=== PATIENT | male | born 1975 | race Caucasian/White ===

== ENCOUNTER 2023-10-23 15:04 | Outpatient (OUT) | payer SELFPAY | END 2023-10-23 15:05 | disposition home or self-care (01) | LOC: PST 15:05 | PROVIDERS: PCP Family Medicine; Visit Provider Surgery | DX: Z01.818 Encounter for other preprocedural examination (principal); Z12.11 Encounter for screening for malignant neoplasm of colon ==

== ENCOUNTER 2023-10-31 07:37 | Day surgery (SDC) | payer OTHER, SELFPAY ==
--- NOTE | 2023-10-31 | OP_ITS ---
OPERATION DATE: 10/31/2023 PREOPERATIVE DIAGNOSIS: Colorectal screening. POSTOPERATIVE DIAGNOSIS: Sigmoid diverticulosis. PROCEDURE: Colonoscopy to cecum. SURGEON: Kenji Lima M.D. ANESTHESIA: Monitored anesthesia care. ESTIMATED BLOOD LOSS: Zero. INDICATIONS AND CONSENT: Patient is a 47-year-old male presents for colorectal screening. Indications, risks, benefits, alternatives of proceeding with colonoscopy were explained extensively to the patient, including the risks of bleeding, colon perforation or anesthetic complications. All of his questions were answered. Informed consent was obtained. PROCEDURE: Patient brought to the operating room, placed in the left lateral decubitus position. Monitored anesthesia care was provided. Rectal exam was performed which showed no masses or blood. The scope was inserted into the anal canal. Under direct visualization was advanced. It was advanced to the cecum where cecal markings were clearly identified. Upon withdrawal of the scope, mucosal surfaces were carefully examined. There were no mass lesions or polyps. No inflammatory changes or ulcerations. There was moderate sigmoid diverticulosis without inflammatory change or scarring. The scope was retroflexed in the anal canal. There was no significant hemorrhoidal disease. Scope was then withdrawn. Patient tolerated procedure well, was sent to recovery room in good condition.f/u colonoscopy should be in 10 years. CC: Dr. Shahid MCALLISTER
--- OUTSIDE RECORDS SUMMARY | 2023-10-31 07:40 | XMS_ITS | CCD ---
Author Name Unknown Address [address] [place] [address] Organization [facility] Care Team Providers Care Gun Numberer Name Role Phone BRAULIO WADSWORTH Attending Unavailable BRAULIO WADSWORTH Consulting Unavailable BRAULIO WADSWORTH Admitting Unavailable FLAKITA, DR MARIA DOLORES Huber Primary Care Unavailable TOANECK, DR SCOUT Gibson Consulting Unavailhaydee e FLAKITA, DR MARIA DOLORES Huber Primary Care Unavailable TOANECK, DR SCOUT Gibson Admitting Unavailabl e REINRADHA, DR SCOUT Gibson Attending Unavailhaydee e JANNETH, MARTINA WALSH Consulting Unavailable Iraida Hsu Consulting Unavailable BRAULIO WADSWORTH Attending Unavailable BRAULIO WADSWORTH Consulting Unavailable BRAULIO WADSWORTH Admitting Unavailable BRAULIO WADSWORTH Attending Unavailable REQUEST, DR BOWEN LISTED Consulting Unavaila BRAULIO Mendoza Admitting Unavailable FLAKITA, DR MARIA DOLORES Huber Primary Care Unavailable BRAULIO WADSWORTH Attending Unavailable BRAULIO WADSWORTH Consulting Unavailable BRAULIO WADSWORTH Unavailable FLAKITA, DR MARIA DOLORES Huber Primary Care Unavailable Braulio Wadsworth. Primary Care Physician Kenji POWELL Attending Unavailable Braulio Wadsworth Referring Unavailable Braulio Wadsworth Attending Unavailable Braulio Wadsworth Attending Unavailable Braulio Wadsworth Admitting Unavailable Allergies Allergy Classification Reported Allergen(s) Allergy Type Date of Onset Reaction(s) Facility (2 sources) Seasonal allergy; Translations: [Seasonal] Allergy to substance Unknown (qualifier value) [facility] (1 source) No Known Medication Allergies; Translations: [No Known Medication Allergies] Propensity to adverse reactions (disorder) [facility] Repository NEGATED: Highlighted row has been ruled out! (1 source) Drug allergy [facility] [place] Problems Active Problems Problem Classification Problem Date Documented Da te Episodic/Chronic Conditions associated with dizziness or vertigo (1 source) Labyrinthitis 09-04-2023 Episodic Contraceptive and procreative management (1 source) Contraception status 09-06-2020 Episodic Esophageal disorders (1 source) Gastroesophageal reflux disease 09-04-2023 Chronic Nonspecific chest pain (4 sources) Other chest pain; Translations: [OTHER CHEST PAIN] Onset: 1 Episodic Other aftercare (1 source) Surgical follow-up 09-23-2020 Episodic Other gastrointestinal disorders (1 source) Dysphagia 09-04-2023 Episodic Other upper respiratory disease (1 source) Allergic rhinitis 09-04-2023 Chronic Unclassified (1 source) PERSONAL HISTORY OF COVID-19; Translations: [PERSONAL HISTORY OF COVID-19] Onset: 1 Unclassified (2 sources) CONTACT W/AND (SUSP) EXPOS COVID-19; Translations: [CONTACT W/AND (SUSP) EXPOS COVID-19] Onset: 1 Unclassified (3 sources) Patient encounter status 03-23-2020 Viral infection (1 source) Infectious mononucleosis 09-04-2023 Episodic Comment on above: 1990 Viral infection (2 sources) COVID-19; Translations: [Disease caused by 2019-nCoV] Onset: 1 09-04-2023 Comment on above: january 2021 and Oct 16 Past or Other Problems Problem Classification Problem Date Documented Da te Episodic/Chronic Immunizations and screening for infectious disease (8 sources) Encounter for immunization; Translations: [Contact with and (suspected) exposure to other viral communicable diseases] Onset: 09-02-2020 Episodic Unclassified (1 source) CONTACT W/AND (SUSP) EXPOS COVID-19; Translations: [CONTACT W/AND (SUSP) EXPOS COVID-19] Onset: 02-03-2021 Results Test Name Value Interpretation Reference Range Facility Consent for Procedure/Surger yon 10-03-2023 Consent for Procedure/Surgery [id number] .[id number] Normal [facility] Ambulatory Visit Summaryon 1 12-03-2022 Ambulatory Visit Summary SIMONE STEFANIE D :1975 Visit Date:10/02/2023 Ambulatory Visit Instructions Your Care Team Attending Physician - ANDRE MAYO, Kenji Mann Primary Care Physician - Braulio Wadsworth MD Referring Physician - Braulio Wadsworth MD Procedures Performed Vasectomy (09/06/2020), Eye surgery. Discharge Vitals Heart Rate (Peripheral) 72 Respiratory Rate 16 Blood Pressure 128/88 Height 185 cm Height 73 in Weight 97 kg Weight 213.4 lb BMI 28.34 Allergies No Known Medication Allergies Seasonal (Unknown) Problems Ongoing - Any problem that you are currently receiving treatment for. Allergic rhinitis BMI 28.0-28.9,adult Colon cancer screening COVID-19 Dysphagia Encounter for postvasectomy sperm count Encounter for vasectomy Encounter for vasectomy assessment GERD (gastroesophageal reflux disease) Labyrinthitis Mononucleosis Obesity Physical exam Patient Survey You may receive a survey via text or e-mail asking about your office visit. Please share your experience with us by completing your survey. We appreciate your feedback and thank you for choosing us for your care. [facility] Patient Correspondenceon Patient Correspondence [id number] [facility] Ambulatory Visit Summaryon 1 11-13-2022 Ambulatory Visit Summary SIMONESTEFANIE BOND David :1975 Visit Date:09/13/2023 Ambulatory Visit Instructions Your Diagnosis Physical exam GERD (gastroesophageal reflux disease) Allergic rhinitis Colon cancer screening Over weight BMI 28.0-28.9,adult Your Care Team Attending Physician - Braulio Wadsworth MD Primary Care Physician - Braulio Wadsworth MD Procedures Performed Vasectomy (09/06/2020), Eye surgery. Discharge Vitals Temperature (Temporal Artery) 37.1 ?C Heart Rate (Peripheral) 76 Respiratory Rate 16 Blood Pressure 138/88 Height 73 in Height 185 cm Weight 214.28 lb Weight 97.4 kg BMI 28.46 Medications and Immunizations Administered Not Given influenza virus vaccine, inactivated, Patient Refuses Allergies No Known Medication Allergies Seasonal (Unknown) Problems Ongoing - Any problem that you are currently receiving treatment for. Allergic rhinitis Colon cancer screening COVID-19 Dysphagia Encounter for postvasectomy sperm count Encounter for vasectomy Encounter for vasectomy assessment GERD (gastroesophageal reflux disease) Labyrinthitis Mononucleosis Physical exam Patient Survey You may receive a survey via text or e-mail asking about your office visit. Please share your experience with us by completing your survey. We appreciate your feedback and thank you for choosing us for your care. [facility] BMI for Adults What is BMI? Body mass index (BMI) is a number that is calculated from a person's weight and height. BMI can help estimate how much of a person's weight is composed of fat. BMI does not measure body fat directly. Rather, it is an alternative to procedures that directly measure body fat, which can be difficult and expensive. BMI can help identify people who may be at higher risk for certain medical problems. What are BMI measurements used for? BMI is used as a screening tool to identify possible weight problems. It helps determine whether a person is obese, overweight, a healthy weight, or underweight. BMI is useful for: ? Identifying a weight problem that may be related to a medical condition or may increase the risk for medical problems. ? Promoting changes, such as changes in diet and exercise, to help reach a healthy weight. BMI screening can be repeated to see if these changes are working. How is BMI calculated? BMI involves measuring your weight in relation to your height. Both height and weight are measured, and the BMI is calculated from those numbers. This can be done either in [place] or metric measurements. Note that charts and online BMI calculators are available to help you find your BMI quickly and easily without having to do these calculations yourself. To calculate your BMI in [place] measurements: 1. Measure your weight in pounds (lb). 2. Multiply the number of pounds by 703. ? For example, for a person who weighs 180 lb, multiply that number by 703, which equals 126,540. 3. Measure your height in inches. Then multiply that number by itself to get a measurement called inches squared. ? For example, for a person who is 70 inches tall, the inches squared measurement is 70 inches x 70 inches, which equals 4,900 inches squared. 4. Divide the total from step 2 (number of lb x 703) by the total from step 3 (inches squared): 126,540 ? 4,900 = 25.8. This is your BMI. To calculate your BMI in metric measurements: 1. Measure your weight in kilograms (kg). 2. Measure your height in meters (m). Then multiply that number by itself to get a measurement called meters squared. ? For example, for a person who is 1.75 m tall, the meters squared measurement is 1.75 m x 1.75 m, which is equal to 3.1 meters squared. 3. Divide the number of kilograms (your weight) by the meters squared number. In this example: 70 ? 3.1 = 22.6. This is your BMI. What do the results mean? BMI charts are used to identify whether you are underweight, normal weight, overweight, or obese. The following guidelines will be used: ? Underweight: BMI less than 18.5. ? Normal weight: BMI between 18.5 and 24.9. ? Overweight: BMI between 25 and 29.9. ? Obese: BMI of 30 or above. Keep these notes in mind: ? Weight includes both fat and muscle, so someone with a muscular build, such as an athlete, may have a BMI that is higher than 24.9. In cases like these, BMI is not an accurate measure of body fat. ? To determine if excess body fat is the cause of a BMI of 25 or higher, further assessments may need to be done by a health care provider. ? BMI is usually interpreted in the same way for men and women. Where to find more information For more information about BMI, including tools to quickly calculate your BMI, go to these websites: ? Centers for Disease Control and Prevention: www.cdc.gov ? [place] [employer]: www.heart.org ? National He (more content not included)... Normal [facility] Auto Diffon 09-13-2023 Basophils/100 WBC (Bld) 0.5 % Normal 0.0-2.0 [facility] Comment on above: Order Comment: Order Added by Discern Expert. Performed By: #### 2 623735, 5453437, 0829389, 51239062, 4874202, 91544347 #### [facility] [address] [place] [address] Basophils/Leukocytes Auto (Bld) [Pure # fraction] 0.0 E9/L Normal 0.0-0.2 [facility] Comment on above: Order Comment: Order Added by Discern Expert. Performed By: #### 2 169131, 0923216, 1659554, 80948501, 6135174, 76102400 #### [facility] [address] [place] [address]1721 Eosinophils/100 WBC (Bld) 7.0 % Normal 0.0-8.0 [facility] Comment on above: Order Comment: Order Added by Discern Expert. Performed By: #### 2 556529, 7789661, 6144192, 16705091, 2684965, 85784900 #### [facility] [address] [place] [address] Eosinophils/Leukocyte s Auto (Bld) [Pure # fraction] 0.5 E9/L Normal 0.0-0.5 [facility] Comment on above: Order Comment: Order Added by Discern Expert. Performed By: #### 2 455602, 2443617, 2467911, 14275930, 3007329, 22422264 #### [facility] [address] [place] [address] 40016 Lymphocytes/100 WBC (Bld) 43.5 % Normal 14.0-50.0 [facility] Comment on above: Order Comment: Order Added by Discern Expert. Performed By: #### 2 927947, 2743758, 0104012, 37852615, 7885715, 70870910 #### [facility] [address] [place] [address] Lymphocytes/Leukocyte s Auto (Bld) [Pure # fraction] 3.0 E9/L Normal 1.0-4.0 [facility] Comment on above: Order Comment: Order Added by Discern Expert. Performed By: #### 2 742541, 3991357, 8585030, 44263962, 4432440, 12879256 #### [facility] [address] [place] [address]184 Monocytes/100 WBC (Bld) 7.0 % Normal 4.0-14.0 [facility] Comment on above: Order Comment: Order Added by Discern Expert. Performed By: #### 2 657600, 2726967, 2054787, 52578758, 7341980, 60675313 #### [facility] [address] [place] [address] Monocytes/Leukocytes Auto (Bld) [Pure # fraction] 0.5 E9/L Normal 0.2-1.0 [facility] Comment on above: Order Comment: Order Added by Discern Expert. Performed By: #### 2 434356, 0597394, 4224073, 60128424, 4635960, 81316872 #### [facility] [address] [place] [address] Neutrophils/100 WBC (Bld) 42.0 % Normal 36.0-75.0 [facility] Comment on above: Order Comment: Order Added by Discern Expert. Performed By: #### 2 743214, 8816719, 8362672, 01490084, 2554824, 79345491 #### [facility] [address] [place] [address] 46955 Neutrophils/Leukocyte s Auto (Bld) [Pure # fraction] 2.9 E9/L Normal 2.0-7.5 [facility] Comment on above: Order Comment: Order Added by Discern Expert. Performed By: #### 2 828995, 6072530, 5312435, 71450162, 5051747, 80772735 #### [facility] [address] [place] [address] 51483 CBC w/ Auto Diffon 3 Erythrocyte distribution width (RBC) [Ratio] 12.9 % Normal 10.9-14.2 [facility] Comment on above: Performed By: #### 2 114864, 1982617, 9756572, 57515172, 1938149, 71475577 #### [facility] [address] [place] [address] 38897 Hematocrit (Bld) [Volume fraction] 39.6 % Normal 37.7-49.0 [facility] Comment on above: Performed By: #### 2 187217, 4796168, 8562939, 08620029, 7840220, 70816013 #### [facility] [address] [place] [address] 52854 Hemoglobin (Bld) [Mass/Vol] 13.5 g/dL Normal 13.5-17.5 [facility] Comment on above: Performed By: #### 2 655914, 6020442, 9772469, 12068125, 4284688, 24071944 #### [facility] [address] [place] [address] MCH (RBC) [Entitic mass] 29.3 pg Normal 27.0-34.0 [facility] Comment on above: Performed By: #### 2 234123, 7990654, 2655197, 69626633, 4804913, 09486333 #### [facility] [address] [place] [address] MCHC (RBC) [Mass/Vol] 34.2 g/dL Normal 31.4-36.0 [facility] Comment on above: Performed By: #### 2 544843, 4506655, 7332555, 56155996, 2469278, 93183530 #### [facility] [address] [place] [address] 89117 MCV (RBC) [Entitic vol] 85.6 fL Normal 80.0-100.0 [facility] Comment on above: Performed By: #### 2 094841, 2143096, 5620924, 43878245, 3374866, 31937941 #### [facility] [address] [place] [address] 37040 Platelet mean volume (Bld) [Entitic vol] 8.5 fL Normal 6.4-10.8 [facility] Comment on above: Performed By: #### 2 890559, 2314328, 0940415, 76040939, 3538822, 10185497 #### [facility] [address] [place] [address] Platelets (Bld) [#/Vol] 236.0 E9/L Normal 150.0-500.0 [facility] Comment on above: Performed By: #### 2 359934, 4205770, 3927010, 45223181, 3871780, 12090822 #### [facility] [address] [place] [address] RBC (Bld) [#/Vol] 4.6 E12/L Normal 4.3-5.9 [facility] Comment on above: Performed By: #### 2 615725, 8071346, 9786441, 27032482, 2918260, 23749828 #### [facility] [address] [place] [address] WBC corrected for nucl RBC Auto (Bld) [#/Vol] 6.8 E9/L Normal 4.0-11.0 [facility] Comment on above: Performed By: #### 2 229161, 3121713, 8891223, 45698638, 1730327, 05812372 #### [facility] [address] [place] [address] CHEMISTRYOrdered By: SYSTEM SYSTEM on 09-13-2023 Albumin [Mass/Vol] 4.4 g/dL Normal 3.3 - 5.0 gm/dL [facility] Albumin/Globulin [Mass ratio] 1.4 {ratio} Normal 1.1 - 2.2 [facility] ALP [Catalytic activity/Vol] 70 [iU]/d Normal 21 - 98 Int._Unit/L [facility] ALT No additional P-5'-P [Catalytic activity/Vol] 42 [iU]/d Normal 6 - 46 Int._Unit/L [facility] Anion gap [Moles/Vol] 12 mmol/L Normal 6 - 16 mEq/L [facility] AST [Catalytic activity/Vol] 39 [iU]/d Normal 5 - 43 Int._Unit/L [facility] Bilirubin [Mass/Vol] 1.1 mg/dL Normal 0.0 - 1 .1 mg/dL [facility] Calcium [Mass/Vol] 9.3 mg/dL Normal 8.9 - 11. 1 mg/dL [facility] Chloride [Moles/Vol] 104 mmol/L Normal 101 - 1 11 mmol/L [facility] Cholesterol [Mass/Vol] 210 mg/dL High 120 - 200 mg/dL [facility] Cholesterol in HDL [Mass/Vol] 37 mg/dL Invalid Interpretation Code [facility] Comment on above: Interpretive Data: H DL > or equal to 60 mg/dL: Low cardiovascular risk HDL < 40 mg/dL : High cardiovascular risk Cholesterol in LDL [Mass/Vol] 152 mg/dL High <=129mg/dL [facility] Cholesterol in VLDL [Mass/Vol] 28 mg/dL Normal 7 - 40 mg/dL [facility] CO2 [Moles/Vol] 26 mmol/L Normal 21 - 31 mmol/L [facility] Creatinine [Mass/Vol] 1.0 mg/dL Normal 0.5 - 1.3 mg/dL [facility] GFR/1.73 sq M.predicted among non-blacks MDRD (S/P/Bld) [Vol rate/Area] 92 mL/min/1.73 m2 Normal >=59mL/min/1 .73 m2 [facility] Comment on above: Interpretive Data: C hronic kidney disease could be indicated at eGFR's of less than 60 mL/min/1.73m2. Kidney failure is indicated at less than 15 mL/min/1.73m2. Globulin (S) [Mass/Vol] 3.2 g/dL Normal 1.4 - 4.0 gm/dL [facility] Glucose [Mass/Vol] 84 mg/dL Normal 55 - 199 mg/dL [facility] Comment on above: Interpretive Data: I f this glucose result represents a fasting glucose, interpretation should refer to the following reference range: 55-99 mg/dL Potassium [Moles/Vol] 3.8 mmol/L Normal 3.5 - 5.3 mmol/L [facility] Prostate specific Ag [Mass/Vol] 0.5 ng/mL Normal 0.1 - 3.5 ng/mL [facility] Comment on above: Interpretive Data: T he concentration of PSA determined by different manufacturers can vary due to differences in assay methods and reagent specificity. Values obtained from different assay methods cannot be used interchangeably. The methodology used for this result was chemiluminescence using [employer]'s Access Hybritech PSA reagent. Protein [Mass/Vol] 7.6 g/dL Normal 6.0 - 7.8 gm/dL [facility] Sodium [Moles/Vol] 138 mmol/L Normal 135 - 145 mmol/L [facility] Triglyceride [Mass/Vol] 139 mg/dL Normal <=149mg/dL [facility] Urea nitrogen [Mass/Vol] 12 mg/dL Normal 5 - 21 mg/dL [facility] Urea nitrogen/Creatinine [Mass ratio] 12 mg/mg Normal 10 - 20 [facility] CMPon 09-13-2023 Albumin [Mass/Vol] 4.4 g/dL Normal 3.3-5.0 [facility] Comment on above: Performed By: #### 2 979745, 0082312, 5560866, 03135357, 7598995, 70775975 #### [facility] [address] [place] [address] Albumin/Globulin (S) [Mass conc ratio] 1.4 Normal 1.1-2.2 [facility] Comment on above: Performed By: #### 2 672264, 6535549, 4126132, 75201920, 2329139, 13363302 #### [facility] [address] [address] ALP [Catalytic activity/Vol] 70 Int._Unit/L Normal 21-98 [facility] Comment on above: Performed By: #### 2 921951, 3115565, 9552686, 06331835, 4367915, 57465399 #### [facility] [address] [place] [address] ALT No additional P-5'-P [Catalytic activity/Vol] 42 Int._Unit/L Normal 6-46 [facility] Comment on above: Performed By: #### 2 015697, 9501176, 6791630, 47257778, 4513220, 02095105 #### [facility] [address] [place] [address] Anion gap [Moles/Vol] 12 mmol/L Normal 6-16 [facility] Comment on above: Performed By: #### 2 535646, 6566313, 9065941, 69989612, 2684741, 39746169 #### [facility] [address] [place] [address] AST [Catalytic activity/Vol] 39 Int._Unit/L Normal 5-43 [facility] Comment on above: Performed By: #### 2 758758, 0890868, 8400939, 95534535, 4852460, 66952222 #### [facility] [address] [place] [address] Bilirubin [Mass/Vol] 1.1 mg/dL Normal 0.0-1.1 [facility] Comment on above: Performed By: #### 2 228074, 1207547, 5284553, 92385522, 8594041, 21636651 #### [facility] [address] [place] [address] Calcium [Mass/Vol] 9.3 mg/dL Normal 8.9-11.1 [facility] Comment on above: Performed By: #### 2 920210, 1479987, 2802134, 52280397, 8300453, 35993333 #### [facility] [address] [place] [address] Chloride [Moles/Vol] 104 mmol/L Normal 101-111 [facility] Comment on above: Performed By: #### 2 923000, 4235790, 4706322, 90288473, 0873769, 93418623 #### [facility] [address] [place] [address] CO2 [Moles/Vol] 26 mmol/L Normal 21-31 [facility] Comment on above: Performed By: #### 2 302535, 2831475, 5857632, 22561097, 0412022, 54647563 #### [facility] [address] [place] [address] Creatinine [Mass/Vol] 1.0 mg/dL Normal 0.5-1.3 [facility] Comment on above: Performed By: #### 2 578148, 3328247, 4279851, 36172305, 4130093, 83503305 #### [facility] [address] [place] [address] Globulin (S) [Mass/Vol] 3.2 g/dL Normal 1.4-4.0 [facility] Comment on above: Performed By: #### 2 913856, 8686149, 2102534, 86823882, 5731379, 71275045 #### [facility] [address] [place] [address] Glucose [Mass/Vol] 84 mg/dL Normal 55-199 [facility] Comment on above: Result Comment: If t his glucose result represents a fasting glucose, interpretation should refer to the following reference range: 55-99 mg/dL Performed By: #### 2 325294, 4278430, 8079075, 89892399, 1298639, 10150896 #### [facility] [address] [place] [address] Potassium [Moles/Vol] 3.8 mmol/L Normal 3.5-5.3 [facility] Comment on above: Performed By: #### 2 112856, 4741545, 2587239, 92732062, 0584728, 64874409 #### [facility] [address] [place] [address] Protein [Mass/Vol] 7.6 g/dL Normal 6.0-7.8 [facility] Comment on above: Performed By: #### 2 846635, 3072161, 3950000, 55277388, 5028228, 88195102 #### [facility] [address] [place] [address] Sodium [Moles/Vol] 138 mmol/L Normal 135-145 [facility] Comment on above: Performed By: #### 2 592183, 5438756, 8306463, 51721170, 7798614, 09259152 #### [facility] [address] [place] [address] Urea nitrogen [Mass/Vol] 12 mg/dL Normal 5-21 [facility] Comment on above: Performed By: #### 2 377594, 8767143, 5692076, 66668671, 5725256, 74630429 #### [facility] [address] [place] [address] Urea nitrogen/Creatinine [Mass ratio] 12 No Units Normal 10-20 [facility] Comment on above: Performed By: #### 2 591012, 0049448, 8994144, 94103798, 6134640, 55738392 #### [facility] [address] [place] [address] Family Medicine Office/Clini c Noteon 09-13-2023 Family Medicine Office/Clinic Note HPI Staff Stefanie is a 47 year old male presenting to establish care wants full labs done as patient is turning 48 Establish Care: History: GERD,,allergic rhinitis Last provider: [facility] Any recent labs: due Health Maintenance UTD: Colonoscopy: needs referral PSA: none flu: refused Acute: Current issues/complaints: History of Present Illness - Here to establish and get a CPE done. - No issues at this time. Review of Systems PHQ Score Initial Depression Screen Score: 0 SCORE Physical Exam Vitals & Measurements T: 37.1 ?C(Temporal Artery) HR: 76(Peripheral) RR: 16 BP: 138/88 SpO2: 98% HT: 73 in HT: 185 cm WT: 97.4 kg WT: 214.28 lb BMI: 28.46 General: alert, no acute distress ENMT: oral mucosa moist, Cardiovascular: regular rate and rhythm, normal peripheral perfusion Respiratory: Lungs CTA, respirations non labored Extremities: no deformity, no trauma Neurological: oriented x 4, LOC appropriate for age, CN II-XII intact, motor strength equal & normal bilaterally, speech normal Abdomen: Soft, Nontender, Non-distended, + BS Assessment/Plan 1. Physical exam (Z00.00: Encounter for general adult medical examination without abnormal findings) - Anticipatory guidance given. Discussed diet and exercise. Discussed immunizations. Ordered: CBC w/ Auto Diff Cologuard Screening Test Comprehensive Metabolic Panel [facility] Internal Ambulatory Referral Lipid Panel PSA Screen, Total 2. GERD (gastroesophageal reflux disease) (K21.9: Gastro-esophageal reflux disease without esophagitis) - Stable - No issues Ordered: CBC w/ Auto Diff Cologuard Screening Test Comprehensive Metabolic Panel [facility] Internal Ambulatory Referral Lipid Panel PSA Screen, Total 3. Allergic rhinitis (J30.9: Allergic rhinitis, unspecified) - OTC meds advised - Follow up PRN Ordered: CBC w/ Auto Diff Cologuard Screening Test Comprehensive Metabolic Panel Lipid Panel PSA Screen, Total 4. Colon cancer screening (Z12.11: Encounter for screening for malignant neoplasm of colon) - Will send for colonoscopy Ordered: CBC w/ Auto Diff Cologuard Screening Test Comprehensive Metabolic Panel [facility] Internal Ambulatory Referral Lipid Panel PSA Screen, Total 5. Over weight (E66.3: Overweight) - Diet and exercise advised Ordered: [facility] Internal Ambulatory Referral 6. BMI 28.0-28.9,adult (Z68.28: Body mass index [BMI] 28.0-28.9, adult) - BMI education given Ordered: [facility] Internal Ambulatory Referral Follow up in 1 year Follow-up No qualifying data available Patient Education BMI for Adults Problem List/Past Medical History Ongoing Allergic rhinitis Colon cancer screening COVID-19 Dysphagia Encounter for postvasectomy sperm count Encounter for vasectomy Encounter for vasectomy assessment GERD (gastroesophageal reflux disease) Labyrinthitis Mononucleosis Physical exam Historical No qualifying data Procedure/Surgical History Vasectomy (09/06/2020), Eye surgery. Medications No active medications Allergies No Known Medication Allergies Seasonal (Unknown) Social History Alcohol - Low Risk, 03/23/2020 Tobacco Never (less than 100 in lifetime) Tobacco Use:. Never Smokeless Tobacco Use:., 09/13/2023 Never (less than 100 in lifetime) Tobacco Use:., 09/23/2020 Family History Cancer: Father. Diabetes mellitus: Father. Hyperlipidemia: Mother. Immunizations Vaccine Date Status Comments influenza virus vaccine, inactivated - Not Given Patient Refuses SARS-CoV-2 (COVID-19) mRNA BNT-162b2 vax 02/28/2021 Recorded SARS-CoV-2 (COVID-19) mRNA BNT-162b2 vax 01/24/2021 Recorded diphtheria/pertussis, acel/tetanus adult 08/15/2013 Recorded Normal [facility] Comment on above: Result Comment: Elec tronically Signed By: Shahid MAYO, Braulio Gar\.br\Date and Time Signed: 09/13/23 13:50 EST [employer] 09-13-2023 Forms [id number] .00TIFF Normal [facility] Forms [id number] .[id number] Normal [facility] HEMATOLOGYOrdered By: SYSTEM SYSTEM on 09-13-2023 Basophils/100 WBC (Bld) 0.5 % Normal 0.0 - 2.0 % [facility] Basophils/Leukocytes Auto (Bld) [Pure # fraction] 0.0 E9/L Normal 0.0 - 0.2 E9/L [facility] Eosinophils/100 WBC (Bld) 7.0 % Normal 0.0 - 8.0 % [facility] Eosinophils/Leukocyte s Auto (Bld) [Pure # fraction] 0.5 E9/L Normal 0.0 - 0.5 E9/L [facility] Lymphocytes/100 WBC (Bld) 43.5 % Normal 14.0 - 50.0 % [facility] Lymphocytes/Leukocyte s Auto (Bld) [Pure # fraction] 3.0 E9/L Normal 1.0 - 4.0 E9/L [facility] Monocytes/100 WBC (Bld) 7.0 % Normal 4.0 - 14.0 % [facility] Monocytes/Leukocytes Auto (Bld) [Pure # fraction] 0.5 E9/L Normal 0.2 - 1.0 E9/L [facility] Neutrophils/100 WBC (Bld) 42.0 % Normal 36.0 - 75.0 % [facility] Neutrophils/Leukocyte s Auto (Bld) [Pure # fraction] 2.9 E9/L Normal 2.0 - 7.5 E9/L [facility] HEMATOLOGYOrdered By: Parvin Faria on 09-13-2023 Erythrocyte distribution width (RBC) [Ratio] 12.9 % Normal 10.9 - 14.2 % [facility] Hematocrit (Bld) [Volume fraction] 39.6 % Normal 37.7 - 49.0 % [facility] Hemoglobin (Bld) [Mass/Vol] 13.5 g/dL Normal 13.5 - 17.5 gm/dL [facility] MCH (RBC) [Entitic mass] 29.3 pg Normal 27.0 - 34.0 pg [facility] MCHC (RBC) [Mass/Vol] 34.2 g/dL Normal 31.4 - 36.0 gm/dL [facility] MCV (RBC) [Entitic vol] 85.6 fL Normal 80.0 - 100.0 fL [facility] Platelet mean volume (Bld) [Entitic vol] 8.5 fL Normal 6.4 - 10.8 fL [facility] Platelets (Bld) [#/Vol] 236.0 E9/L Normal 150.0 - 500.0 E9/L [facility] RBC (Bld) [#/Vol] 4.6 E12/L Normal 4.3 - 5.9 E12/L [facility] WBC corrected for nucl RBC Auto (Bld) [#/Vol] 6.8 E9/L Normal 4.0 - 11.0 E9/L [facility] Lipid Panelon 09-13-2023 Cholesterol [Mass/Vol] 210 mg/dL High 120-200 [facility] Comment on above: Performed By: #### 2 [id number], [id number], [id number], [id number], [id number], [id number] #### [facility] [address] [place] [address] Cholesterol in HDL [Mass/Vol] 37 mg/dL Invalid Interpretation Code [facility] Comment on above: Result Comment: HDL > or equal to 60 mg/dL: Low cardiovascular risk HDL < 40 mg/dL : High cardiovascular risk Performed By: #### 2 [id number], [id number], [id number], [id number], [id number], [id number] #### [facility] [address] [place] [address] Cholesterol in LDL [Mass/Vol] 152 mg/dL High <=129 [facility] Comment on above: Performed By: #### 2 [id number], [id number], [id number], [id number], [id number], [id number] #### [facility] [address] [place] [address] Cholesterol in VLDL [Mass/Vol] 28 mg/dL Normal 7-40 [facility] Comment on above: Performed By: #### 2 [id number], [id number], [id number], [id number], [id number], [id number] #### [facility] [address] [place] [address] Triglyceride [Mass/Vol] 139 mg/dL Normal <=149 [facility] Comment on above: Performed By: #### 2 [id number], [id number], 9048731, [id number], [id number], [id number] #### [facility] [address] [place] [address] PSA Screen, Totalon 09-13-20 23 Prostate specific Ag [Mass/Vol] 0.5 ng/mL Normal 0.1-3.5 [facility] Comment on above: Result Comment: The concentration of PSA determined by different manufacturers can vary due to differences in assay methods and reagent specificity. Values obtained from different assay methods cannot be used interchangeably. The methodology used for this result was chemiluminescence using [employer]'s Access Hybritech PSA reagent. Performed By: #### 2 [id number], [id number], [id number], [id number], [id number], [id number] #### [facility] [address] [place] [address] Patient Educationon 09-13-20 23 Patient Education Nutrition BMI for Adults What is BMI? Body mass index (BMI) is a number that is calculated from a person's weight and height. BMI can help estimate how much of a person's weight is composed of fat. BMI does not measure body fat directly. Rather, it is an alternative to procedures that directly measure body fat, which can be difficult and expensive. BMI can help identify people who may be at higher risk for certain medical problems. What are BMI measurements used for? BMI is used as a screening tool to identify possible weight problems. It helps determine whether a person is obese, overweight, a healthy weight, or underweight. BMI is useful for: ? Identifying a weight problem that may be related to a medical condition or may increase the risk for medical problems. ? Promoting changes, such as changes in diet and exercise, to help reach a healthy weight. BMI screening can be repeated to see if these changes are working. How is BMI calculated? BMI involves measuring your weight in relation to your height. Both height and weight are measured, and the BMI is calculated from those numbers. This can be done either in [place] or metric measurements. Note that charts and online BMI calculators are available to help you find your BMI quickly and easily without having to do these calculations yourself. To calculate your BMI in [place] measurements: 1. Measure your weight in pounds (lb). 2. Multiply the number of pounds by 703. ? For example, for a person who weighs 180 lb, multiply that number by 703, which equals 126,540. 3. Measure your height in inches. Then multiply that number by itself to get a measurement called inches squared. ? For example, for a person who is 70 inches tall, the inches squared measurement is 70 inches x 70 inches, which equals 4,900 inches squared. 4. Divide the total from step 2 (number of lb x 703) by the total from step 3 (inches squared): 126,540 ? 4,900 = 25.8. This is your BMI. To calculate your BMI in metric measurements: 1. Measure your weight in kilograms (kg). 2. Measure your height in meters (m). Then multiply that number by itself to get a measurement called meters squared. ? For example, for a person who is 1.75 m tall, the meters squared measurement is 1.75 m x 1.75 m, which is equal to 3.1 meters squared. 3. Divide the number of kilograms (your weight) by the meters squared number. In this example: 70 ? 3.1 = 22.6. This is your BMI. What do the results mean? BMI charts are used to identify whether you are underweight, normal weight, overweight, or obese. The following guidelines will be used: ? Underweight: BMI less than 18.5. ? Normal weight: BMI between 18.5 and 24.9. ? Overweight: BMI between 25 and 29.9. ? Obese: BMI of 30 or above. Keep these notes in mind: ? Weight includes both fat and muscle, so someone with a muscular build, such as an athlete, may have a BMI that is higher than 24.9. In cases like these, BMI is not an accurate measure of body fat. ? To determine if excess body fat is the cause of a BMI of 25 or higher, further assessments may need to be done by a health care provider. ? BMI is usually interpreted in the same way for men and women. Where to find more information For more information about BMI, including tools to quickly calculate your BMI, go to these websites: ? Centers for Disease Control and Prevention: www.cdc.gov ? [place] [employer]: www.heart.org ? National Heart, Lung, and Blood [place]: www.nhlbi.nih.gov Summary ? Body mass index (BMI) is a number that is calculated from a person's weight and height. ? BMI may help estimate how much of a person's weight is composed of fat. BMI can help identify those who may be at higher risk for certain medical problems. ? BMI can be measured using Samoan measurements or metric measurements. ? BMI charts are used to identify whether you are underweight, normal weight, overweight, or obese. This information is not intended to replace advice given to you by your health care provider. Make sure you discuss any questions you have with your health care provider. Document Revised: 06/23/2020 Document Reviewed: 04/30/2020 [employer] Patient Education ? 2022 [employer] Normal [facility] eGFRon 09-13-2023 GFR/1.73 sq M.predicted among non-blacks MDRD (S/P/Bld) [Vol rate/Area] 92 mL/min/1.73 m2 Normal >=59 [facility] Comment on above: Order Comment: Order added by Discern Expert. Result Comment: Supervisor Mapping traci kidney disease could be indicated at eGFR's of less than 60 mL/min/1.73m2. Kidney failure is indicated at less than 15 mL/min/1.73m2. Performed By: #### 2 [id number], [id number], [id number], [id number], [id number], [id number] #### [facility] [address] [place] [address] CBC AUTO DIFFon 06-18-2021 BASO # 0.1 103/ul Normal 0.0-0.1 [facility] Comment on above: Performed By: #### C BC #### [facility] [address] [place], [place] [address] Beto Del Rosario Basophils/100 WBC (Bld) 0.7 % Normal 0.2-2.0 [facility] Comment on above: Performed By: #### C BC #### [facility] [address] [place], [place] [address] Beto Carin EO # 0.3 103/ul Normal 0.0-0.7 [facility] Comment on above: Performed By: #### C BC #### [facility] [address] [place], [place] [address] Beto Carin Eosinophils/100 WBC (Bld) 5.1 % Normal 0.9-7.0 [facility] Comment on above: Performed By: #### C BC #### [facility] [address] [place] [address] Beto Carin Erythrocyte distribution width (RBC) [Ratio] 12.3 % Normal 11.0-15.0 [facility] Comment on above: Performed By: #### C BC #### [facility] [address] [place] [address] Beto Carin Hematocrit (Bld) [Volume fraction] 42.7 % Normal 42.0-54.0 [facility] Comment on above: Performed By: #### C BC #### [facility] [address] [place], [place] [address] Beto Carin Hemoglobin (Bld) [Mass/Vol] 14.0 g/dL Normal 14.0-18.0 [facility] Comment on above: Performed By: #### C BC #### [facility] [address] [place] [address] Beto Carin IG # 0.02 10e3/ul Normal 0.00-0.03 [facility] Comment on above: Performed By: #### C BC #### [facility] [address] [place] [address] Beto Carin IG % 0.3 % Normal 0.0-0.5 [facility] Comment on above: Performed By: #### C BC #### [facility] [address] [place] [address] Beto Cairn LYMPH # 2.7 103/ul Normal 1.2-3.8 [facility] Comment on above: Performed By: #### C BC #### [facility] [address] [place], [place] [address] Beto Carin Lymphocytes/100 WBC (Bld) 41.1 % Normal 20.5-60.0 [facility] Comment on above: Performed By: #### C BC #### [facility] [address] [place] [address] Beto Carin MANUAL DIFF REQ NO Normal [facility] Comment on above: Performed By: #### C BC #### [facility] [address] [place] [address] Beto Carin MCH (RBC) [Entitic mass] 28.8 pg Normal 25.9-34.0 [facility] Comment on above: Performed By: #### C BC #### [facility] [address] [place], [place] [address] Beto Carin MCHC (RBC) [Mass/Vol] 32.8 g/dL Normal 29.9-35.2 [facility] Comment on above: Performed By: #### C BC #### [facility] [address] [place], [place] [address] Beto Carin MCV (RBC) [Entitic vol] 87.9 fL Normal 80.0-94.0 [facility] Comment on above: Performed By: #### C BC #### [facility] [address] [place], [place] [address] Beto Carin MONO # 0.5 103/ul Normal 0.3-0.8 [facility] Comment on above: Performed By: #### C BC #### [facility] [address] [place], [place] [address] Beto Carin Monocytes/100 WBC (Bld) 8.1 % Normal 1.7-12.0 [facility] Comment on above: Performed By: #### C BC #### [facility] [address] [place], [place] [address] Beto Carin NEUT # 3.0 103/ul Normal 1.4-6.5 [facility] Comment on above: Performed By: #### C BC #### [facility] [address] [place] [address] Beto Del Rosario Neutrophils/100 WBC (Bld) 44.7 % Normal 43.0-75.0 [facility] Comment on above: Performed By: #### C BC #### [facility] [address] [place] [address] Beto Del Rosario Platelet mean volume (Bld) [Entitic vol] 9.5 fL Normal 9.5-13.5 [facility] Comment on above: Performed By: #### C BC #### [facility] [address] [place] [address] Beto Del Rosario PLT 214 103/ul Normal 150-450 [facility] Comment on above: Performed By: #### C BC #### [facility] [address] [place] [address] Beto Del Rosario RBC 4.86 106/ul Normal 4.70-6.10 [facility] Comment on above: Performed By: #### C BC #### [facility] [address] [place] [address] Beto Del Rosario WBC 6.7 103/ul Normal 4.0-11.0 [facility] Comment on above: Performed By: #### C BC #### [facility] [address] [place], [place] [address] Beto Del Rosario D-DIMERon 06-18-2021 D-DIMER <0.19 Normal 0.19-0.50 [facility] Comment on above: Performed By: #### D DIM #### [facility] [address] [place] [address] Betojuliane Del Rosario D-DIMER COMMENTS SEE BELOW Normal [facility] Comment on above: Result Comment: Incr eases in D-Dimer concentration observed with thromboembolic events can be variable due to localization, size, and age of the thrombus. Therefore, a thromboembolic event cannot be diagnosed with certainty on the basis of the reference range. D-Dimers may also be elevated for a variety of disorders including: advanced age, , coronary disease, cancer, liver disease, infection, inflammation, hematoma, DIC, trauma, post-surgery, diabetes, thrombolytic or anticoagulant therapy, stress, and generalized hospitalization. Performed By: #### D DIM #### [facility] [address] [place] [address] Betojuliane Del Rosario LIPASEon 06-18-2021 Lipase [Catalytic activity/Vol] 104.0 U/L Normal 23.0-300.0 [facility] Comment on above: Performed By: #### L IPA, CMP, HSTROPN #### [facility] [address] [place] [address] Betojuliane Del Rosario PROF 14(COMP METB)on 021 Albumin [Mass/Vol] 4.1 g/dL Normal 3.5-5.0 [facility] Comment on above: Performed By: #### L IPA, CMP, HSTROPN #### [facility] [address] [place] [address] Beto Carin Albumin/Globulin [Mass ratio] 1.1 {ratio} Normal [facility] Comment on above: Performed By: #### L IPA, CMP, HSTROPN #### [facility] [address] [place] [address] Beto Carin ALP [Catalytic activity/Vol] 81 U/L Normal 38-126 [facility] Comment on above: Performed By: #### L IPA, CMP, HSTROPN #### [facility] [address] [place] [address] Beto Carin ALT [Catalytic activity/Vol] 31 U/L Normal 21-72 [facility] Comment on above: Performed By: #### L IPA, CMP, HSTROPN #### [facility] [address] [place] [address] Beto Carin Anion gap [Moles/Vol] 12.7 mmol/L Normal [facility] Comment on above: Performed By: #### L IPA, CMP, HSTROPN #### [facility] [address] [place] [address] Beto Carin AST [Catalytic activity/Vol] 17 U/L Normal 17-59 [facility] Comment on above: Performed By: #### L IPA, CMP, HSTROPN #### [facility] [address] [place], [place] [address] Beto Carin Bilirubin [Mass/Vol] 1.2 mg/dL Normal 0.2-1.3 [facility] Comment on above: Performed By: #### L IPA, CMP, HSTROPN #### [facility] [address] [place] [address] Beto Carin Calcium [Mass/Vol] 9.3 mg/dL Normal 8.4-10.2 [facility] Comment on above: Performed By: #### L IPA, CMP, HSTROPN #### [facility] [address] [place] [address] Beto Carin Chloride [Moles/Vol] 106 mmol/L Normal 98-107 [facility] Comment on above: Performed By: #### L IPA, CMP, HSTROPN #### [facility] [address] [place] [address] Beto Carin CO2 [Moles/Vol] 28.0 mmol/L Normal 22.0-30.0 [facility] Comment on above: Performed By: #### L IPA, CMP, HSTROPN #### [facility] [address] [place] [address] Beto Carin Creatinine [Mass/Vol] 0.85 mg/dL Normal 0.66-1.25 [facility] Comment on above: Performed By: #### L IPA, CMP, HSTROPN #### [facility] [address] [place] [address] Beto Carin EGFR-AF BENINESE >60 Normal >=60 [facility] Comment on above: Performed By: #### L IPA, CMP, HSTROPN #### [facility] [address] [place] [address] Beto Carin EGFR-NON AF BENINESE >60 Normal >=60 [facility] Comment on above: Performed By: #### L IPA, CMP, HSTROPN #### [facility] [address] [place] [address] Beto Carin Globulin (S) [Mass/Vol] 3.7 g/dL Normal [facility] Comment on above: Performed By: #### L IPA, CMP, HSTROPN #### [facility] [address] [place] [id number] Beto Carin Glucose [Mass/Vol] 86 mg/dL Normal 74-106 [facility] Comment on above: Performed By: #### L IPA, CMP, HSTROPN #### [facility] [address] [address] Beto Carin Potassium [Moles/Vol] 3.7 mmol/L Normal 3.4-5.0 [facility] Comment on above: Performed By: #### L IPA, CMP, HSTROPN #### [facility] [address] [address] Beto Carin Protein [Mass/Vol] 7.8 g/dL Normal 6.1-8.2 [facility] Comment on above: Performed By: #### L IPA, CMP, HSTROPN #### [facility] [address] [place] [address] Beto Carin Sodium [Moles/Vol] 143 mmol/L Normal 137-145 [facility] Comment on above: Performed By: #### L IPA, CMP, HSTROPN #### [facility] [address] [place] [address] Beto Carin Urea nitrogen [Mass/Vol] 15.0 mg/dL Normal 9.0-20.0 [facility] Comment on above: Performed By: #### L IPA, CMP, HSTROPN #### [facility] [address] [place] [address] Beto Carin Urea nitrogen/Creatinine [Mass ratio] 17.6 mg/mg Normal [facility] Comment on above: Performed By: #### L IPA, CMP, HSTROPN #### [facility] [address] [place], [place] [address] Beto Carin TROPONIN, HIGH SENSITIVITYon 06-18-2021 HSTROP <4.0 Normal 4.0-42.2 [facility] Comment on above: Result Comment: CUT- OFF POINTS HAVE BEEN ESTABLISHED BASED ON THE FOURTH UNIVERSAL DEFINITIONS OF MYOCARDIAL INFARCTION. THE UPPER REFERENCE LIMIT (URL) OF TROPONIN, DEFINED THE 99TH PERCENTILE OF cTnI DISTRIBUTION IN A REFERENCE POPULATION, HAS BEEN CONFIRMED THE DECISION THRESHOLD FOR [place] DIAGNOSIS. Performed By: #### L IPA, CMP, HSTROPN #### [facility] [address] [place], [place] [address] Beto Del Rosario XR CHEST 2 Von 06-18-2021 XR CHEST 2 V CHEST X RAY, 2 VIEWS CLINICAL INFORMATION: Chest pain. COMPARISONS: None. FINDINGS: No focal consolidation to suggest pneumonia. No pleural effusions or pneumothorax. No overt pulmonary edema. Cardiomediastinal silhouette within normal limits. IMPRESSION: 1. No acute cardiopulmonary disease. Electronically authenticated by: IRAIDA HSU Date: 2021-06-18 16:45 Normal [facility] Covid-19 PCR (CVDTB)on 01-14 Sample Type Test performed using RT-PCR from a nasopharyngeal collected specimen. Normal [facility] Comment on above: Performed By: #### C VDTB #### [facility] [address] [place] [address] Beto Del Rosario SARS-CoV-2 (COVID-19) RNA LORI+probe Ql (Unsp spec) Detected Abnormal NOT DETECTED [facility] Comment on above: Result Comment: This test is not yet approved or cleared by the [place] FDA. When there are no FDA-approved or cleared tests available, and other criteria are met, FDA can make tests available under an emergency access mechanism called an Emergency Use Authorization (EUA). The EUA for this test is supported by the [place] of Health and Human Service's (HHS's) declaration that circumstances exist to justify the emergency use of in vitro diagnostics for the detection and/or diagnosis of the virus that causes COVID-19. This EUA will remain in effect (meaning this test can be used) for the duration of the COVID-19 declaration justifying emergency of IVDs, unless it is terminated or revoked by FDA (after which the test may no longer be used). Performed By: #### C VDTBH #### [facility] [address] [place] [address] Beto Del Rosario COVID-19 PCRon 09-04-2020 SARS-CoV-2 (COVID-19) RNA LORI+probe Ql (Unsp spec) Not detected Normal Not Detected [facility] Comment on above: Result Comment: This nucleic acid amplification test was developed and its performance characteristics determined by [employer]. Nucleic acid amplification tests include PCR and TMA. This test has not been FDA cleared or approved. This test has been authorized by FDA under an Emergency Use Authorization (EUA). This test is only authorized for the duration of time the declaration that circumstances exist justifying the authorization of the emergency use of in vitro diagnostic tests for detection of SARS-CoV-2 virus and/or diagnosis of COVID-19 infection under section 564(b)(1) of the Act, 21 U.S.C. 360bbb-3(b) (1), unless the authorization is terminated or revoked sooner. When diagnostic testing is negative, the possibility of a false negative result should be considered in the context of a patient's recent exposures and the presence of clinical signs and symptoms consistent with COVID-19. An individual without symptoms of COVID-19 and who is not shedding SARS-CoV-2 virus would expect to have a negative (not detected) result in this assay. Performed By: #### C VDPCR #### [facility] [address] [place] [address] Beto Del Rosario Encounters Encounter Date Encounter Type Care Provider Facility Start: 10-02-2023 End: 10-03-2023 ambulatory Kenji POWELL [facility] Start: 09-19-2023 ambulatory Kenji POWELL Facility:[facility] Start: 09-17-2023 ambulatory Kenji POWELL Facility:[facility] Start: 09-13-2023 End: 09-14-2023 ambulatory Braulio Wadsworth Facility:[facility] Start: 09-13-2023 End: 09-13-2023 Lab Drop off Braulio Wadsworth [facility] Start: 06-18-2021 End: 06-18-[address] SCOUT DONG Facility:[facility] Start: 02-28-2021 End: 03-01-2021 ambulatory BRAULIO WADSWORTH Facility:[facility] Start: 02-03-2021 End: 02-03-2021 ambulatory BRAULIO WADSWORTH Facility:[facility] Start: 01-24-2021 End: 01-25-2021 ambulatory BRAULIO WADSWORTH Facility:[facility] Start: 09-02-2020 End: 09-03-2020 ambulatory BRAULIO WADSWORTH Facility:[facility] Procedures Date Procedure Procedure Detail Performing Clinician Start: 09-06-2020 Vasectomy Braulio montano Ophthalmic surgery (qualifier value) Braulio Wadsworth Comment on above: 2005 Immunizations Immunization Date Immunization Notes Care Provider Fa cility 02-28-2021 SARS-CoV-2 (COVID-19 ) mRNA BNT-162b2 vax Braulio Wadsworth [facility] 01-24-2021 SARS-CoV-2 (COVID-19 ) mRNA BNT-162b2 vax Braulio Wadsworth [facility] 08-15-2013 tetanus toxoid, reduced diphtheria toxoid, and acellular pertussis vaccine, adsorbed Braulio Wadsworth [facility] NEGATED: Highlighted row has not occurred!09-13-2023 influenza virus vaccine, unspecified formulation Braulio Wadsworth [facility] Payers Date Payer Category Payer Unknown [id number] 2.16.84 [id number] 1973 Unknown [id number] 2.16.84 [id number] 1973 Unknown [id number] 2.16.84 [id number] 1973 Unknown [id number] 2.16.84 [id number] 1973 Unknown [id number] 2.16.84 [id number] 1973 Unknown [id number] 2.16.8 [id number] 1973 Unknown [id number] 2.16.8 [id number] 1973 Unknown [id number] 2.16.8 [id number] 1959 Unknown [id number] Social History Date Type Detail Facility Start: 09-13-2023 Tobacco smoking status Never [facility] Tobacco smoking status Never smo ked tobacco (finding) [facility] Sex Assigned At Male [facility] Clinical Note 10-02-2023 Note Date & Type Note Facility 10-02-2023 Note Chief Complaint consultation for screening colonoscopy HPI Staff 47 year old male presents on consultation from Dr. Wadsworth for screening colonoscopy. Denies abdominal or rectal pain. No rectal bleeding or change in bowel habits. Denies nausea or vomiting. No unexplained weight loss. Never had coloscopy in the past. No known family history of colon cancer. History of Present Illness 47 yo male referred for colorectal screening; denies change in bms or blood in stools; no abdominal complaints; denies asa or NSAID use, no SBE prophylaxis; no abdominal operations or previous colonoscopy; no fmhx of GI malignancy or IBD; no tobacco use. Review of Systems PHQ Score Initial Depression Screen Score: 0 SCORE ROS - Provider Constitutional: no fever, no sweats, no weight loss. Eyes: no glasses, no blurred vision, no visual loss. ENMT: no dentures, no hoarseness, no swallowing difficulties, no hearing loss, no ear infection(s), no nose bleeds. Cardiovascular: normal blood pressure, no chest pain, regular heartbeat, no heart murmur. Respiratory: no shortness of breath, no cough, no asthma, no wheezing. Gastrointestinal: no nausea, no vomiting, no diarrhea, no constipation, no blood in stool, no change in bowel habits, no abdominal pain, no hepatitis. Genitourinary: no kidney stones, no urine infection, no dysuria. Musculoskeletal: no pain, no weakness. Skin: no changing moles, no rash, no skin lumps. Neurologic: no seizures, no epilepsy, no headache. Psychiatric: no emotional or psychiatric problem. Heme/Lymph: no bleeding problems, no anemia, no blood clots, no transfusions. Allergy/Immunologic: no swollen lymph nodes/glands, no IV drug abuse. Other: Additional ROS info: Except as noted in the above Review of Systems and in the History of Present Illness, all other systems have been reviewed and are negative or noncontributory. Physical Exam Vitals & Measurements HR: 72(Peripheral) RR: 16 BP: 128/88 HT: 73 in HT: 185 cm WT: 97 kg WT: 213.4 lb BMI: 28.34 HEENT: normal conjunctiva, sclera clear, no scleral icterus, EOM intact, PERRLA, oral mucosa moist without lesions. Neck: trachea midline, no mass, symmetric, no thyromegaly or nodules, no adenopathy Respiratory: lungs CTA, respirations non labored. Cardiovascular: regular rate and rhythm, no murmur, no pedal edema or varicosities. Gastrointestinal: soft, non distended, no tenderness, no masses, no palpable hernias, diastasis recti no, no hepatosplenomegaly; normal bs Lymphatic: no cervical adenopathy, no supraclavicular adenopathy. Musculoskeletal: normal gait, digits and nails without infection, nodes, cyanosis, clubbing. Skin: no rashes, no lesions, no ulcers, no subcutaneous nodules, induration. Psychiatric/Neuro: oriented to time, place, person, judgement normal, affect appropriate for age, insight intact, no focal deficits. Tests: , review of old records completed , Discussed surgical options, risks, and possible complications with patient. Assessment/Plan 1. Screening for malignant neoplasm of colon (Z12.11: Encounter for screening for malignant neoplasm of colon) plan colonoscopy under anesthesia, informed consent obtained. Follow-up No qualifying data available Problem List/Past Medical History Ongoing Allergic rhinitis BMI 28.0-28.9,adult Colon cancer screening COVID-19 Dysphagia Encounter for postvasectomy sperm count Encounter for vasectomy Encounter for vasectomy assessment GERD (gastroesophageal reflux disease) Labyrinthitis Mononucleosis Obesity Physical exam Screening for malignant neoplasm of colon Historical No qualifying data Procedure/Surgical History Vasectomy (09/06/2020), Eye surgery. Medications No active medications Allergies No Known Medication Allergies Seasonal (Unknown) Social History Alcohol - Low Risk, 03/23/2020 Current, Beer, 1-2 times per month, 10/02/2023 Substance Abuse - Denies Substance Abuse, 10/02/2023 Tobacco Never (less than 100 in lifetime) Tobacco Use:. Never Smokeless Tobacco Use:., 09/13/2023 Family History Diabetes mellitus: Father. Hyperlipidemia: Mother. Primary malignant neoplasm of prostate: Father. Immunizations Vaccine Date Status Comments influenza virus vaccine, inactivated - Not Given Patient Refuses SARS-CoV-2 (COVID-19) mRNA BNT-162b2 vax 02/28/2021 Recorded SARS-CoV-2 (COVID-19) mRNA BNT-162b2 vax 01/24/2021 Recorded diphtheria/pertussis, acel/tetanus adult 08/15/2013 Recorded [facility] Comment on above: Result Comment: Elec tronically Signed By: ANDRE MAYO, Kenji Stafford\Date and Time Signed: 10/02/23 14:52 EST Evaluation + Plan note Note Date & Type Note Facility Evaluation + Plan note No data available for this section [facility] Discharge instructions Note Date & Type Note Facility Hospital Discharge instructions No data available for this section [facility] Progress note Note Date & Type Note Facility Progress note No data available for this section [facility] Summary Purpose Family History No Family History Records Found No data available for this section No Family History Records Found Advance Directives No Advanced Directives Records FoundNo Advanced Directives Records Found Additional Source Comments (unrecognized sect ion and content) No Status Records FoundNo Status Records Found INFORMATION SOURCE (unrecogn ized section and content) DATE CREATED AUTHOR 07/27/2021 [facility] DATE CREATED AUTHOR AUTHOR'S ORGANIZ ATION 10/04/2023 [facility] Patient Care team informatio n (unrecognized section and content) Personnel Name: Braulio Wadsworth MD Address: [address] [place], [place] [address] FOR RECORDS PERTAINING TO PATIENTS WHO ARE OR HAVE BEEN ENROLLED IN A CHEMICAL DEPENDENCY/SUBSTANCEABUSE PROGRAM, SOME INFORMATION MAY BE OMITTED. This clinical summary was aggregated from multiple sources. Caution should be exercised in using it in the provision of clinical care. This summary normalizes information from multiple sources, and as a consequence, information in this document may materially change the coding, format and clinical context of patient data. In addition, data may be omitted in some cases. CLINICAL DECISIONS SHOULD BE BASED ON THE PRIMARY CLINICAL RECORDS. [facility] provides no warranty or guarantee of the accuracy or completeness of information in this document.
[2023-10-31 07:45] VITALS: BP 144/98; PULSE 76; RESP 16; TEMP 36.3; O2SAT 100; BMI 28.1
[2023-10-31] MEDS: LACTATED RINGER'S SOLUTION 1,000 ML 50 ML IV (08:00)
[2023-10-31 08:54] VITALS: BP 134/82; PULSE 78; RESP 16; O2SAT 98
[2023-10-31 09:11] VITALS: BP 140/98; PULSE 66; RESP 16; O2SAT 99
== END 2023-10-31 09:25 | disposition home or self-care (01) ==
PROVIDERS: PCP Family Medicine; Visit Provider Surgery
PROC: (CPT 812; principal; 2023-10-31 08:35)
DX: Z12.11 Encounter for screening for malignant neoplasm of colon (principal); K57.30 Diverticulosis of large intestine without perforation or abscess without bleeding; Z86.16 Personal history of COVID-19; K21.9 Gastro-esophageal reflux disease without esophagitis; E66.9 Obesity, unspecified; Z68.28 Body mass index [BMI] 28.0-28.9, adult
CPT/HCPCS: 45378; J2704